=== PATIENT | female | born 1965 | race Caucasian/White ===

== ENCOUNTER 2018-02-10 21:35 | Inpatient (IN) ==
--- NOTE | 2018-02-11 03:04 | ED ---
HPI General Chief Complaint: Psychiatric Symptoms Stated Complaint: psych evail/DCSO Time Seen by Provider: 02/11/18 01:57 Source: patient Mode of arrival: EMS Limitations: no limitations History of Present Illness HPI Narrative: 52-year-old white female presents emergency department as a transfer from [facility] under Mend[place]ola act for psychological evaluation after a suicide attempt. Patient has major depressive disorder. She had been drinking alcohol and had overdosed on amlodipine. The patient states that she was feeling overwhelmed with being unemployed and moving her parents from [place] to [place]. She had posted on Facebook which alerted friends who had found her. She had written a suicide note as well. The patient has contemplated suicide in the past. She states that she has never acted on it as she had done this past week. During her hospitalization it was noted that she was having runs of [employer] fib. She was started on apixaban and amrinone. The patient currently denies any medical complaints. No chest pain, palpitations, nausea, vomiting, abdominal pain or urinary symptoms. Patient does admit to a history of alcohol abuse. She drinks wine on a daily basis. She denies tobacco and drugs. Past medical history: Atrial fibrillation, adenocarcinoma the colon with resection, hypertension, depression, right ectopic Surgical history: Laparoscopic hand-assisted partial colectomy, right salpingo- oophorectomy Related Data Home Medications Medication Instructions Recorded Confirmed amiodarone 200 mg PO DAILY 02/10/18 02/10/18 amlodipine 10 mg PO DAILY 02/10/18 02/10/18 apixaban 5 mg PO BID 02/10/18 02/10/18 fluoxetine 40 mg PO DAILY 02/10/18 02/10/18 multivitamin 1 tab PO DAILY 02/10/18 02/10/18 Allergies Allergy/AdvReac Type Severity Reaction Status Date / Time ibuprofen Allergy Intermediate Rash Verified 02/12/18 09:05 Review of Systems ROS: all other systems reviewed are negative [facility] Medical History Medical History Anxiety (Acute) Atrial fibrillation (Acute) Colon cancer (Acute) Depression (Acute) Ectopic (Acute) History of chemotherapy (Acute) Hypertension (Acute) Surgical History Surgical History History of colon resection (Acute) Hx of tubal ligation (Acute) Family History Family History Father HTN (hypertension) Mother HTN (hypertension) Breast cancer Social History Social History Substance History: No History of Abuse Second Hand Smoke Exposure: No Smoking Status: Former smoker Tobacco Type: Cigarettes How Often Do You Have a Drink Containing Alcohol: 4 or more times a week Hx Recent Travel: No Recent Travel in [facility] within the Last 8 Weeks: No Recent Out of Country Travel within the Last 8 Weeks: No Immunization History Tetanus Immunization: Unsure Hx Influenza Vaccine This Season: No Exam Narrative Exam Narrative: GENERAL: Well-nourished, well-developed patient. SKIN: Warm and dry. HEAD: Normocephalic and atraumatic. EYES: No scleral icterus. No injection or drainage. ENT: No nasal drainage noted. Mucous membranes pink. Airway patent. NECK: Supple, trachea midline. Moves head freely without obvious discomfort. CARDIOVASCULAR: Regular rate and rhythm without murmurs, gallops, or rubs. RESPIRATORY: Breath sounds equal bilaterally. No accessory muscle use. GASTROINTESTINAL: Abdomen soft, non-tender, nondistended. EXTREMITIES: No cyanosis or edema. BACK: Nontender without obvious deformity. No CVA tenderness. NEURO: Patient is alert and oriented. no sensorimotor deficits. Nonfocal. Normal speech. PSYCH: No delusions. No auditory or visual hallucinations. Course Initial Documented Vital Signs Temperature 98.1 F 02/11/18 00:21 Pulse Rate 75 02/11/18 00:21 Respiratory Rate 18 02/11/18 00:21 Blood Pressure 109/68 02/11/18 00:21 Pulse Oximetry 95 02/11/18 00:21 Last Documented Vital Signs Temperature 98.4 F 02/13/18 06:00 Pulse Rate 73 02/13/18 06:00 Respiratory Rate 17 02/13/18 06:00 Blood Pressure 119/70 02/13/18 06:00 Pulse Oximetry 97 02/13/18 06:00 Medical Decision Making MDM Narrative Medical decision making narrative: The patient has been medically cleared at [facility] after her intentional overdose/suicide attempt. I see no need for any additional testing at this time. The patient will be considered medically cleared to see the psychiatrist. Differential Diagnosis Differential Diagnosis: MDM: High Differential diagnoses: Schizophrenia, schizoaffective disorder, bipolar, anxiety, depression, adjustment reaction, mood disorder NOS, ODD, depressive disorder NOS, psychosis NOS, substance induced mood disorder, infection, electrolyte abnormality, malingering. Mental health screening discussed with the patient. Psychiatric screen ordered. Discharge Plan Discharge Disposition Patient Disposition: 01 Discharge Home Discharge Condition Condition: Stable Discharge Details Anticipated Discharge Date: 02/11/18 Physicians Team ED Provider: Paige Luis ED Midlevel Provider: Fidencio Levin Primary Care Provider: ROWENA, Attending Provider: Justice Corral Other Providers: Aram Arthur Status ED Status: Left Department Discharge Information Discharge Date/Time: 02/11/18 13:08
[2018-02-11] MEDS ORDERED: Aluminum/Magnesium/Simethacone Susp 30 ML UDC PO PRN (08:57)
[2018-02-11] MEDS ORDERED: Bisacodyl 10 MG Supp RECTAL PRN (08:57)
[2018-02-11] MEDS ORDERED: Haloperidol Inj 5 MG/ML Ampul IV.PUSH PRN (12:58)
[2018-02-11] MEDS ORDERED: LORazepam 1 MG Tablet PO PRN (12:58)
--- NOTE | 2018-02-11 13:08 | P.HPPSY ---
Provisional Diagnosis Admission Date: February 10, 2018 21:35 [place] I.: Major depressive disorder, recurrent, severe, without psychosis, alcohol use disorder, anxiety [place] II.: Deferred [place] III.: Hypertension Competence Certification of Person's Competence To Provide Express and Informed Consent I have personally examined Tracie Lambert, a person being served at [facility] on, February 11, 2018 1259. Express and informed consent means consent voluntarily given in writing, by a competent person, after sufficient explanation and disclosure of the subject matter involved to enable the person to make a knowing and willful decision without any element of force, fraud, deceit, duress, or other form of constraint or coercion. This person is 18 years of age or older, is not now known to be incompetent to consent to treatment with a guardian advocate, and does not have a health care surrogate or proxy currently making medical treatment decisions. I have found this person to be one of the following: [] Competent to provide express and informed consent, as defined above, for voluntary admission to this facility and is competent to provide express and informed consent for treatment. He/she has the consistent capacity to make well reasoned, willful, and knowing decisions concerning his or her medical or mental health treatment. The person fully and consistently understands the purpose of the admission for examination/placement and is fully capable of personally exercising all rights assured [place] Incompetent to provide express and informed consent to voluntary admission, and this is incompetent to provide express and informed consent to treatment. The person must be transferred to involuntary status and a petition for a guardian advocate filed with the Circuit Court. [x] Refusing to provide express and informed consent to voluntary admission but is competent to provide express and informed consent for treatment. The person must be discharged or transferred to involuntary status. Form shall be completed within 24 hours of a person's arrival at the receiving facility and filed in the clinical record of each person: 1. Admitted on a voluntary basis 2. Permitted to provide express and informed consent to his/her own treatment 3. Allowed to transfer from involuntary to voluntary status 4. Prior to permitting a person to consent to his or her own treatment after having been previously found incompetent to consent to treatment. History of Present Illness Capacity: Has capacity History of Present Illness: The patient is a 52-year-old woman, domiciled in the [facility], single, no kids, unemployed, with psychiatric history of anxiety, depression, alcohol use disorder, 1 previous psychiatric hospitalizations, one previous suicide attempt, she is on Prozac 20 mg prescribed by PCP, medical history hypertension, who presents emergency department as a transfer from [facility] under [place] act for psychological evaluation after a suicide attempt by overdosing with amlodipine. The patient states that she was feeling overwhelmed with being unemployed and moving her parents from [place] to [place]. She had posted on Facebook which alerted friends who had found her. She had written a suicide note as well. The patient has contemplated suicide in the past. She states that she has never acted on it as she had done this past week. She reports that the major stressors for her depression are her inability to control the alcoholism, no new business, sense of hopelessness, abandonment, financial stressors. Patient reports that she has many moment in a week in which she wishes to be . During the evaluation the patient is quite tearful, she seems very vulnerable, at the moment denies suicidal ideation , is able to contract for safety in the hospital. She is oriented 3, no attention deficit, no fluctuation of consciousness. PPHx: history of anxiety, depression, alcohol use disorder, 1 previous psychiatric hospitalizations, one previous suicide attempt, she is on Prozac 20 mg prescribed by PCP PMHx: JADEN sustance Hx: Patient drinks alcohol every day, denies illegal drug Family Hx: She denies family psychiatric history Social hx: The patient was born and raised in [place], she lives in [facility], she is single, no kids, unemployed, highest level of education is a bachelor degree Review of Systems Constitutional: Denies anorexia, Denies body ache(s), Denies chills, Denies daytime sleepiness, Denies excessive sweating, Denies fatigue, Denies fever(s), Denies headache(s), Denies increased appetite, Denies lack of energy, Denies malaise, Denies night sweats, Denies weakness, Denies weight gain, Denies weight loss, Denies other Eyes: Denies blind spots, Denies blurry vision, Denies bulging eyes, Denies change in vision, Denies double vision, Denies discharge, Denies dry eyes, Denies floaters, Denies irritation, Denies itchy eyes, Denies loss of vision, Denies pain, Denies requires corrective lenses, Denies sensitivity to light, Denies other Ears, Nose, Mouth, and Throat: Denies abnormal hearing, Denies bleeding gums, Denies bad breath, Denies change in voice, Denies dental pain, Denies difficulty swallowing, Denies dizziness, Denies dry mouth, Denies ear discharge , Denies ear pain, Denies facial pain, Denies headache(s), Denies hearing loss, Denies hoarseness, Denies lip swelling, Denies nosebleed, Denies mouth lesions, Denies mouth pain, Denies nasal congestion, Denies nasal discharge, Denies nasal obstruction, Denies nasal trauma, Denies neck lump, Denies neck pain, Denies nose pain, Denies pain with swallowing, Denies poor balance, Denies post nasal drip, Denies ringing in the ears, Denies sinus pain, Denies sinus pressure , Denies sore throat, Denies throat swelling, Denies tongue swelling, Denies other Cardiovascular: Denies chest pain, Denies chest pain at rest, Denies chest pain with activity, Denies excessive sweating, Denies fainting, Denies fast heart rate, Denies foot swelling, Denies generalized swelling, Denies irregular heart rhythm, Denies leg pain with activity, Denies leg sores, Denies leg swelling, Denies lightheadedness, Denies radiating jaw, neck or arm pain, Denies rapid, pounding, or irregular heartbeat, Denies shortness of breath, Denies shortness of breath with activity, Denies shortness of breath when lying down, Denies shortness of breath causing sudden awakening, Denies slow heart rate, Denies other Respiratory: Denies change in phlegm color, Denies chest congestion, Denies cough, Denies coughing up blood, Denies excessive phlegm production, Denies pain on inspiration, Denies pain with cough, Denies shortness of breath, Denies shortness of breath with activity, Denies snoring, Denies stridor, Denies wheezing, Denies other Gastrointestinal: Denies abdominal pain, Denies belching, Denies black, tarry stools, Denies bloating, Denies bright, red blood in stools, Denies change in bowel habits, Denies constant urge to pass stool, Denies change in stools, Denies coffee ground vomit, Denies constipation, Denies cramping, Denies difficulty swallowing, Denies excessive passing of gas, Denies feeling full early, Denies heartburn, Denies incontinent of stools, Denies loose stools, Denies nausea, Denies pain with swallowing, Denies vomiting, Denies vomiting blood, Denies other Musculoskeletal: Denies abnormal walking, Denies back pain, Denies body aches, Denies decreased muscle mass, Denies deformity, Denies joint pain, Denies joint swelling, Denies limited joint movement, Denies loss of height, Denies muscle cramps, Denies muscle weakness, Denies neck pain, Denies numbness, Denies radiating pain into limb, Denies stiffness, Denies tingling, Denies other Skin/Breast: Denies acne, Denies bleeding lesions, Denies boil, Denies breast swelling, Denies breast skin changes, Denies breast pain, Denies breast lump, Denies change in breast shape, Denies change in hair, Denies change in skin color, Denies changing lesions, Denies dry skin, Denies excessive hair growth, Denies hair loss, Denies itching, Denies lesions, Denies nail changes, Denies new lesions, Denies nipple discharge, Denies non-healing lesions, Denies redness , Denies sensitivity to light, Denies rash, Denies skin pain, Denies skin ulcer , Denies sores, Denies stretch lacey, Denies unusual bruising, Denies wounds, Denies yellowing of the skin, Denies other Neurologic: Denies abnormal hearing, Denies abnormal movements, Denies abnormal speech, Denies abnormal walking, Denies behavioral changes, Denies burning sensations, Denies confusion, Denies dizziness, Denies fainting, Denies frequent falls, Denies headache(s), Denies lack of coordination, Denies localized weakness, Denies loss of vision, Denies memory loss, Denies numbness, Denies other visual disturbances, Denies radiating pain, Denies restless legs, Denies convulsions, Denies seizure-like activity, Denies sensory deficit, Denies tingling, Denies tingling/numbness/burning sensations, Denies tremor(s), Denies unsteadiness, Denies weakness, Denies other Psychiatric: Reports change in appetite, Reports depression, Reports irritability, Reports mood swings, Reports thoughts of hurting/killing yourself [facility] - History History Provided By: Medical Record - Medical History Medical History: Medical History (Last Reviewed 02/11/18 @ 03:02 by JOHN Hansen) Depression Hypertension - Tobacco History Smoking Status: Never smoker - Alcohol History How Often Do You Have a Drink Containing Alcohol: 2 to 3 times a week - Substance Use History Substance History: No History of Abuse - Substance Use Type Alcohol Type: Daily Wine Route Used: By Mouth - Immunization History Tetanus Immunization: Unsure Hx Influenza Vaccine This Season: No Medications and Allergies Active Medications: Active Medications Al Hydrox/Mg Hydrox/Simethicone (Mag-Al Plus Susp Liq) 30 ml PO Q6H PRN PRN Reason: DYSPEPSIA Al Hydroxide/Mg Hydroxide (Milk Of Magnesia Liq) 30 ml PO Q12H PRN PRN Reason: Mild Constipation Bisacodyl (Dulcolax Supp) 10 mg RECTAL DAILY PRN PRN Reason: SEVERE CONSITIPATION Diphenhydramine HCl (Benadryl) 50 mg PO Q6H PRN PRN Reason: For mild anxiety and/or EPS Lactulose (Lactulose Liq) 30 ml PO DAILY PRN PRN Reason: SEVERE CONSITIPATION Lorazepam (Ativan Inj) 1 mg IM Q6H PRN PRN Reason: MODERATE TO SEVERE ANXIETY Senna/Docusate Sodium (Lydia-Colace) 1 tab PO BID BENEDICT Sennosides (Senokot) 17.2 mg PO Q12H PRN PRN Reason: Moderate Constipation Sertraline HCl (Zoloft) 25 mg PO DAILY BENEDICT Allergies Allergy/AdvReac Type Severity Reaction Status Date / Time ibuprofen Allergy Intermediate Rash Unverified 02/14/17 01:57 Home Medications Medication Instructions Recorded Confirmed Type amiodarone 200 mg PO DAILY 02/10/18 02/10/18 History amlodipine 10 mg PO DAILY 02/10/18 02/10/18 History apixaban 5 mg PO BID 02/10/18 02/10/18 History fluoxetine 40 mg PO DAILY 02/10/18 02/10/18 History multivitamin 1 tab PO DAILY 02/10/18 02/10/18 History Exam Vital signs: Vital Signs 02/11/18 00:21 Temperature 98.1 F Pulse Rate 75 Respiratory Rate 18 Blood Pressure 109/68 Pulse Oximetry 95 Intake & Output 02/10/18 02/11/18 02/11/18 18:59 06:59 18:59 Weight 81.647 kg 89.8 kg Other: Weight On Admission 89.8 kg Narrative: No tremors, no withdrawal, no EPS, no stiffness, no psychomotor agitation or retardation at the moment. - Constitutional no acute distress - Routine HEENT Exam Head: Present: normocephalic ENT: Present: mucous membranes moist Mental Status Examination Appearance: Appropriate Consciousness: Alert Orientation: x4 Motor Activity: Normal gait Speech: Unremarkable Language: Adequate Fund of Knowledge: Adequate Attention and Concentration: Adequate Memory: Unremarkable Mood: Sad Affect: Sad Thought Process & Associations: Intact Thought Content: Appropriate Hallucination Type: None Delusion Type: None Suicidal Ideation: Yes Suicidal Plan: No Suicidal Intention: No Homicidal Ideation: No Homicidal Plan: No Homicidal Intention: No Insight: Poor Judgment: Poor Assessment and Plan - Assessment (1) Major depress dis, severe Code(s): F32.2 - Major depressive disorder, single episode, severe without psychotic features Status: Acute - Plan Plan: Estimated LOS: [] days On psychiatric evaluation today the patient presents with symptoms of depression consistent on frequent crying spells, anhedonia, hopelessness, helplessness, increased loneliness, increased alcohol use with a recent quite a little suicidal attempt by overdosing with amlodipine after writing several suicidal notes. Patient reports as a stressor or alcohol use, separation from her parents, lack of social and family support. Lack of employment. This is a patient with a psychiatric history of anxiety, depression, alcohol use disorder , previous psychiatric admissions, previous suicide attempts in the past, who is now in an increased risk of danger to self and needs psychiatric admission for stabilization. She was on Prozac 40 mg daily prescribed by PCP. I will start on Zoloft 25 mg daily for depression. Continue CIWA. Will consult psychiatry for second opinion. Justification for Continued Inpatient Stay: Patient needs psychiatric admission for stabilization.
[2018-02-11] MEDS: Senna/Docusate Sodium 8.6/50 MG Tablet PO SCH (22:38)
[2018-02-12] MEDS: Senna/Docusate Sodium 8.6/50 MG Tablet PO SCH ×2 (09:06→22:33)
[2018-02-12] MEDS: Sertraline 50 MG Tablet PO SCH ×2 (09:06→11:52)
[2018-02-12] MEDS ORDERED: Acetaminophen 325 MG Tablet PO PRN (10:11)
[2018-02-12] MEDS ORDERED: Aluminum/Magnesium/Simethacone Susp 30 ML UDC PO PRN ×2 (10:11→10:16)
[2018-02-12] MEDS ORDERED: Bisacodyl 10 MG Supp RECTAL PRN (10:16)
--- NOTE | 2018-02-12 10:23 | P.PNPSY ---
Subjective Remarks: Patient is a 52-year-old white female initially admitted 2 0 under the Mend[place]ola act. His HNP reviewed and agreed with. Dr. Prado has done first opinion petition supporting Mendiola act. I have completed the initial psychiatric template admission orders. I agree with Dr. Prado patient does meet criteria for inpatient psychiatric hospitalization however I feel patient does have the capacity at this time to sign on a voluntary basis she is willing to do this thus I will lift the Mendiola act allow her to sign voluntary. Patient gives a history of episodic depression in the past related to care of her family. She was born in [place] she has lived in [place] her parents were living in [place] until she relocated them back to [facility] a few months ago returning to [facility] about 2 months ago to be near her boyfriend and her friends. Patient is single never been and has no children. Though she has a male friend who initially was romantically involved but now they are good friends E is the person who found this lady and took her to the hospital when she overdosed around 01/31. There is some confusion as to the process leading to patient being brought here from [facility]. In any event at this time patient does remain depressed though I feel she has improved sufficiently to sign voluntary she does deny suicidality at the present time. She is acknowledged alcoholic, over the past 2 months drinking a large bottle of wine daily, she denies blacking out or passing out, she has a history of detox/rehab a number of years ago. Though she denies any legal issues she denies any other drug use. At this time patient does meet criteria for further inpatient psychiatric assessment and treatment. Though I feel she does have capacity to sign voluntary thus I will lift the Mendiola act allow her to sign voluntary will continue her Zoloft at 25 mg daily at the present time. We will repeat her EKG to check her cardiac status. We will refer also to Shailesh Degroot traffic representative Review of Systems All other systems reviewed negative except as stated in HPI Mental Status Examination Appearance: Appropriate Consciousness: Alert Orientation: x4 Motor Activity: Normal gait Speech: Unremarkable Language: Adequate Fund of Knowledge: Adequate Attention and Concentration: Adequate Memory: Unremarkable Mood: Sad Affect: Other (Good range and intensity) Thought Process & Associations: Intact Thought Content: Appropriate Hallucination Type: None Delusion Type: None Suicidal Ideation: Yes (Denies at this time) Suicidal Plan: No Suicidal Intention: No Homicidal Ideation: No Homicidal Plan: No Homicidal Intention: No Insight: Fair Judgment: Adequate (Fair) Assessment and Plan - Assessment (1) Major depressive disorder, recurrent severe without psychotic features Code(s): F33.2 - Major depressive disorder, recurrent severe without psychotic features Status: Acute - Plan Plan: At this time patient does meet criteria for inpatient psychiatric hospitalization likely she does have capacity thus I will lift Mend[place] act allow her to sign voluntary. We will continue her on her Zoloft at 25 mg daily we will add Atarax and Benadryl for anxiety relief. At this time we will also continue the ciwa protocol and observe for any signs of withdrawal. Hopefully within the week she will be stabilized we can return her to her home to follow up with Shailesh porter Justification for Continued Inpatient Stay: At this time patient would decompensate a place to a lower level of care Discharge Planning: Return home Request Healthcare Surrogate/Guardian Advocate?: No
[2018-02-12] MEDS: Amiodarone 200 MG Tablet PO SCH (11:51)
[2018-02-12] MEDS: amLODIPine 10 MG Tablet PO SCH (11:52)
--- NOTE | 2018-02-12 17:31 | P.CON ---
History of Present Illness Service: [facility] Consult date: 02/12/18 Requesting Physician: Justice Corral Reason for Consult: Atrial Fibrilation Primary Care Provider: UNKNOWN Chief Complaint: Depression, HTN History of Present Illness: Patient is a 52-year-old female with primary medical history of HTN, atrial fibrillation, EtOH abuse, depression who initially came into the hospital for suicidal attempt. As per patient she took several amlodipine medication that she has and also with alcohol. Patient states that she has been an alcoholic but has been sober for quite some time and just restarted to drink again. States she is very depressed during the time of admission that she wanted to hurt herself. She denies dizzy ideation today. She also denies homicidal ideation. She states she is feeling a lot better now that she is in the psychiatry unit. States she was recently diagnosed with atrial fibrillation by her cash posting representative and was started on medications including Eliquis. Denies pain and discomfort. Denies SOB/ dyspnea. Denies chest pain, palpitations, headaches, dizziness. Denies fevers, chills, n/v/d. Denies hematuria, dysuria. Review of Systems All other systems reviewed negative except as stated in HPI PMFSH - History History Provided By: Patient - Medical History Medical History: Medical History (Last Updated 02/12/18 @ 18:23 by RAY Hdz) Anxiety Atrial fibrillation Colon cancer Depression Ectopic History of chemotherapy Hypertension - Surgical History Surgical History: Surgical History (Last Updated 02/11/18 @ 14:19 by Sapphire Murphy RN) History of colon resection Hx of tubal ligation - Family History Family History: Family History (Last Updated 02/13/18 @ 08:02 by RAY Hdz) Father HTN (hypertension) Mother HTN (hypertension) Breast cancer - Tobacco History Second Hand Smoke Exposure: No Tobacco Use In Past 30 Days: No Smoking Status: Former smoker Tobacco Type: Cigarettes - Alcohol History How Often Do You Have a Drink Containing Alcohol: 4 or more times a week - Substance Use History Substance History: No History of Abuse - Substance Use Type Alcohol Type: Daily Wine Status: Active Route Used: By Mouth Frequency: "One bottle of wine every day for the past month" Reason for Use: Calm Down - Travel History History of Recent Travel: No Recent Travel in the [facility] Within the Last 8 Weeks: No Recent Travel Out of the Country Within the Last 8 Weeks: No - Immunization History Tetanus Immunization: Unsure Hx Influenza Vaccine This Season: No Medications and Allergies Active Medications: Active Medications Acetaminophen (Tylenol) 650 mg PO Q4H PRN PRN Reason: Pain 1-5 or Temp >101F Amiodarone HCl (Cordarone) 200 mg PO DAILY [facility] Last Admin: 02/12/18 11:51 Dose: 200 mg Amlodipine Besylate (Norvasc) 10 mg PO DAILY [facility] Last Admin: 02/12/18 11:52 Dose: Not Given Apixaban (Eliquis) 5 mg PO BID [facility] Last Admin: 02/12/18 11:52 Dose: 5 mg Bisacodyl (Dulcolax Supp) 10 mg RECTAL DAILY PRN PRN Reason: SEVERE CONSITIPATION Diphenhydramine HCl (Benadryl) 50 mg PO Q6H PRN PRN Reason: For mild anxiety and/or EPS Flumazenil (Romazecon Inj) 0.2 mg IV.PUSH Q1M PRN PRN Reason: OVERSEDATION Haloperidol Lactate (Haldol Inj) 1 mg IV.PUSH Q15M PRN PRN Reason: for severe agitation Hydroxyzine HCl (Atarax) 50 mg PO Q6H PRN PRN Reason: ANXIETY Lactulose (Lactulose Liq) 30 ml PO DAILY PRN PRN Reason: SEVERE CONSITIPATION Lorazepam (Ativan Inj) 1 mg IM Q6H PRN PRN Reason: MODERATE TO SEVERE ANXIETY Lorazepam (Ativan) 1 mg PO Q4H PRN PRN Reason: for CIWA 8-10 Lorazepam (Ativan Inj) 2 mg IV.PUSH Q2H PRN PRN Reason: for CIWA 11-14 Lorazepam (Ativan Inj) 2 mg IV.PUSH Q1H PRN PRN Reason: for CIWA 15-20 Lorazepam (Ativan Inj) 2 mg IV.PUSH Q15M PRN PRN Reason: for CIWA > 20 Lorazepam (Ativan Inj) 1 mg IV.PUSH Q4H PRN PRN Reason: for CIWA 8-10 Lorazepam (Ativan) 2 mg PO Q2H PRN PRN Reason: for CIWA 11-14 Miscellaneous (Pill Splitter) 1 each OTHER [facility] Multivitamins (Theragran) 1 tab PO DAILY [facility] Last Admin: 02/12/18 11:52 Dose: 1 tab Senna/Docusate Sodium (Lydia-Colace) 1 tab PO BID [facility] Sennosides (Senokot) 17.2 mg PO Q12H PRN PRN Reason: Moderate Constipation Sertraline HCl (Zoloft) 25 mg PO DAILY [facility] Last Admin: 02/12/18 11:52 Dose: 25 mg Allergies Allergy/AdvReac Type Severity Reaction Status Date / Time ibuprofen Allergy Intermediate Rash Verified 02/12/18 09:05 Home Medications Medication Instructions Recorded Confirmed Type amiodarone 200 mg PO DAILY 02/10/18 02/10/18 History amlodipine 10 mg PO DAILY 02/10/18 02/10/18 History apixaban 5 mg PO BID 02/10/18 02/10/18 History fluoxetine 40 mg PO DAILY 02/10/18 02/10/18 History multivitamin 1 tab PO DAILY 02/10/18 02/10/18 History Physical Exam Vital signs: Vital Signs 02/12/18 07:02 Temperature 98.1 F Pulse Rate 71 Respiratory Rate 16 Blood Pressure 123/66 Pulse Oximetry 96 Intake & Output 02/11/18 02/12/18 02/12/18 18:59 06:59 18:59 Weight 89.8 kg Other: Date of Last Bowel Movement 02/09/18 02/11/18 Weight On Admission 89.8 kg Narrative: GENERAL: This is a well-nourished, well-developed patient, in no apparent distress. SKIN: Warm and dry. HEENT: Normocephalic. Pupils equal round and reactive. Nose without bleeding. Airway patent. NECK: Trachea midline. Supple. CARDIOVASCULAR: Regular rate and rhythm without murmurs, gallops, or rubs. RESPIRATORY: Clear to auscultation. Breath sounds equal bilaterally. No wheezes , rales, or rhonchi. GASTROINTESTINAL: Abdomen soft, non-tender, nondistended. Bowel Sounds normoactive x4. MUSCULOSKELETAL: Extremities without clubbing, cyanosis. Trace bilateral lower extremity edema NEUROLOGICAL: Awake and alert. Oriented to time, place, person. No focal neuro deficit. Moves all extremities. Normal speech. Assessment and Plan - Plan Patient is a 52-year-old female with primary medical history of HTN, atrial fibrillation, EtOH abuse, depression who initially came into the hospital for suicidal attempt Suicidal attempt, depression -Managed by psychiatry team EtOH abuse -Counseled -CIWA -Multivitamin, thiamine, famotidine Atrial fibrillation HTN -Continue home medication Eliquis, amlodipine, amiodarone 200 p.o. daily -On exam sinus rhythm -Monitor BP trend, monitor heart rate DVT prop Eliquis Code Status: Full code Discussed Condition With: Patient, nurse Discharge Planning: DC disposition by primary team
[2018-02-12] MEDS: Famotidine 20 MG Tablet PO SCH (20:06)
[2018-02-13] MEDS: Amiodarone 200 MG Tablet PO SCH (09:15)
[2018-02-13] MEDS: Famotidine 20 MG Tablet PO SCH ×2 (09:16→20:59)
[2018-02-13] MEDS: Senna/Docusate Sodium 8.6/50 MG Tablet PO SCH ×2 (09:16→20:59)
[2018-02-13] MEDS: amLODIPine 10 MG Tablet PO SCH ×2 (09:16→09:19)
[2018-02-13] MEDS: Sertraline 50 MG Tablet PO SCH (09:17)
--- NOTE | 2018-02-13 13:24 | ECG ---
Date Performed: 02/13/2018 Time Performed: 11:40:41 PTAGE: 52 years EKG: SINUS BRADYCARDIA LOW QRS VOLTAGE IN PRECORDIAL LEADS BORDERLINE ECG NO PREVIOUS TRACING DOCTOR: Aron Navarro Interpretating Date/Time 02/13/2018 13:22:27
--- NOTE | 2018-02-13 13:41 | P.PNPSY ---
Subjective Remarks: Patient seen and briceno with RNLydia, chart reviewed, patient compliant medication. Patient states she slept well last night for about 5-1/2-6 hours, feeling calmer that she is not homicidal or suicidal at the time. She is tolerating the medication without difficulty at this time. Hospitalist consultation noted and appreciated. EKG is been reviewed. For now continue treatment Review of Systems All other systems reviewed negative except as stated in HPI Mental Status Examination Appearance: Appropriate Consciousness: Alert Orientation: x4 Motor Activity: Normal gait Speech: Unremarkable Language: Adequate Fund of Knowledge: Adequate Attention and Concentration: Adequate Memory: Unremarkable Mood: Sad Affect: Other (Good range and intensity) Thought Process & Associations: Intact Thought Content: Appropriate Hallucination Type: None Delusion Type: None Suicidal Ideation: Yes (Denies at this time) Suicidal Plan: No Suicidal Intention: No Homicidal Ideation: No Homicidal Plan: No Homicidal Intention: No Insight: Fair Judgment: Adequate (Fair) Assessment and Plan - Assessment (1) Major depressive disorder, recurrent severe without psychotic features Code(s): F33.2 - Major depressive disorder, recurrent severe without psychotic features Status: Acute - Plan Plan: Patient continues depressed though improving she appears to be doing well with the milieu. She denies suicidality homicidality at this time. For now continue treatment Justification for Continued Inpatient Stay: At this time patient would decompensate a place to a lower level of care Discharge Planning: Probable return to her home Request Healthcare Surrogate/Guardian Advocate?: No
--- NOTE | 2018-02-13 14:26 | P.PN ---
Subjective Interval history: Follow-up visit A. fib, HTN. Patient seen and examined today. Reports she is doing well. States that atrial fibrillation is probably going to resolve according to his cloth burler if she quits drinking alcohol. Otherwise, denies pain and discomfort. Denies SOB/ dyspnea. Denies chest pain, palpitations, headaches, dizziness. Denies fevers, chills, n/v/d. Denies dysuria. Physical Exam Vital signs: Vital Signs 02/12/18 17:52 02/13/18 06:00 Temperature 97.7 F 98.4 F Pulse Rate 87 73 Respiratory Rate 16 17 Blood Pressure 128/76 119/70 Pulse Oximetry 96 97 Intake & Output 02/12/18 02/13/18 02/13/18 18:59 06:59 18:59 Other: Date of Last Bowel Movement 02/11/18 Narrative: GENERAL: This is a well-nourished, well-developed patient, in no apparent distress. SKIN: Warm and dry. HEENT: Normocephalic. Pupils equal round and reactive. Nose without bleeding. Airway patent. NECK: Trachea midline. Supple. CARDIOVASCULAR: Regular rate and rhythm without murmurs, gallops, or rubs. RESPIRATORY: Clear to auscultation. Breath sounds equal bilaterally. No wheezes , rales, or rhonchi. GASTROINTESTINAL: Abdomen soft, non-tender, nondistended. Bowel Sounds normoactive x4. MUSCULOSKELETAL: Extremities without clubbing, cyanosis. Trace bilateral lower extremity edema NEUROLOGICAL: Awake and alert. Oriented to time, place, person. No focal neuro deficit. Moves all extremities. Normal speech. Assessment and Plan - Plan Patient is a 52-year-old female with primary medical history of HTN, atrial fibrillation, EtOH abuse, depression who initially came into the hospital for suicidal attempt Suicidal attempt, depression -Managed by psychiatry team EtOH abuse -Counseled -CIWA -Multivitamin, thiamine, famotidine Atrial fibrillation HTN -Continue home medication Eliquis, amlodipine, amiodarone 200 p.o. daily -On exam sinus rhythm -Monitor BP trend, monitor heart rate DVT prop Eliquis Stable from Hospitalist standpoint. We will sign off. Reconsult as needed. Code Status: Full code Discussed Condition With: Patient, nursing Discharge Planning: DC disposition by primary team
[2018-02-13 17:48] VITALS: PULSE 68; RESP 18; O2SAT 98
[2018-02-14 05:12] VITALS: BP 110/61; TEMP 97.6
[2018-02-14] MEDS: Amiodarone 200 MG Tablet PO SCH (09:13)
[2018-02-14] MEDS: Famotidine 20 MG Tablet PO SCH (09:14)
[2018-02-14] MEDS: Sertraline 50 MG Tablet PO SCH (09:14)
[2018-02-14] MEDS: amLODIPine 10 MG Tablet PO SCH (09:15)
[2018-02-14] MEDS: Senna/Docusate Sodium 8.6/50 MG Tablet PO SCH (09:16)
--- NOTE | 2018-02-14 13:21 | P.DSPSY ---
Psychiatry Discharge Summary Inpatient Psychiatric care?: Yes Advance Directives: No Mental Health Advance Directive: No Health Care Proxy: No - Admission Admission Date: February 11, 2018 12:53 - Admission Diagnosis (1) Major depressive disorder, recurrent severe without psychotic features Code(s): F33.2 - Major depressive disorder, recurrent severe without psychotic features Brief History: The patient is a 52-year-old woman, domiciled in the [facility], single, no kids, unemployed, with psychiatric history of anxiety, depression, alcohol use disorder, 1 previous psychiatric hospitalizations, one previous suicide attempt, she is on Prozac 20 mg prescribed by PCP, medical history hypertension, who presents emergency department as a transfer from [facility] under [place] [facility] for psychological evaluation after a suicide attempt by overdosing with amlodipine. The patient states that she was feeling overwhelmed with being unemployed and moving her parents from [place] to [place]. She had posted on Facebook which alerted friends who had found her. She had written a suicide note as well. The patient has contemplated suicide in the past. She states that she has never acted on it as she had done this past week. She reports that the major stressors for her depression are her inability to control the alcoholism, no new business, sense of hopelessness, abandonment, financial stressors. Patient reports that she has many moment in a week in which she wishes to be . During the evaluation the patient is quite tearful, she seems very vulnerable, at the moment denies suicidal ideation , is able to contract for safety in the hospital. She is oriented 3, no attention deficit, no fluctuation of consciousness. PPHx: history of anxiety, depression, alcohol use disorder, 1 previous psychiatric hospitalizations, one previous suicide attempt, she is on Prozac 20 mg prescribed by PCP PMHx: JADEN sustance Hx: Patient drinks alcohol every day, denies illegal drug Family Hx: She denies family psychiatric history Social hx: The patient was born and raised in [place], she lives in [facility], she is single, no kids, unemployed, highest level of education is a bachelor degree Tobacco Use In Past 30 Days: No How Often Do You Have a Drink Containing Alcohol: 4 or more times a week Hospital Course: Patient's hospital course was uneventful, she showed compliance with medication from day of admission. Her depression with suicidal ideation in the vigilance slowly resolved with her compliance medication in a participation in the milieu patient seen today she denies suicidality homicidality voice or visions. States she is feeling much better she has energy and focus solutions to go back to her work. Thus patient will be discharged today with Rx 1 month follow-up [facility] outpatient medication management and counseling, also follow-up with [facility] outpatient support groups, and follow-up with AA - Discharge Discharge Date: 02/14/18 - Discharge Diagnosis (1) Major depressive disorder, recurrent severe without psychotic features Code(s): F33.2 - Major depressive disorder, recurrent severe without psychotic features Status: Acute Discharge Disposition: Home - Discharge Instructions Discharge Diet: Regular Diet Activities You Can Perform: Regular- No Restrictions - Discharge Time > 30 minutes Mental Status Examination Appearance: Appropriate Consciousness: Alert Orientation: x4 Motor Activity: Normal gait Speech: Unremarkable Language: Adequate Fund of Knowledge: Adequate Attention and Concentration: Adequate Memory: Unremarkable Mood: Sad Affect: Other (Good range and intensity) Thought Process & Associations: Intact Thought Content: Appropriate Hallucination Type: None Delusion Type: None Suicidal Ideation: Yes (Denies at this time) Suicidal Plan: No Suicidal Intention: No Homicidal Ideation: No Homicidal Plan: No Homicidal Intention: No Insight: Fair Judgment: Adequate (Fair) Discharge/Advance Care Plan - Results Vital Signs: Last Vital Signs Temp 97.6 F 02/14/18 05:35 Pulse 68 02/14/18 05:35 Resp 18 02/14/18 05:35 BP 110/61 02/14/18 05:35 Pulse Ox 98 02/14/18 05:35 Lab Results: Urine toxicology negative Summary of Procedures: None done Pending Results: None - Medications Number of antipsychotic medications at discharge: 0 - Discharge Care Plan Goals to Promote Your Health: * To prevent worsening of your condition and complications * To maintain your health at the optimal level Directions to Meet Your Goals: Take your medications as prescribed Follow your dietary instruction Follow activity as directed Keep your appointments as scheduled Take your immunizations and boosters as scheduled If your symptoms worsen call your PCP, if no PCP go to Urgent Care Center or Emergency Room For 22/01 questions related to your inpatient stay or results of tests pending at discharge, please contact Dr. Justice Corral MD at Smoking is Dangerous to Your Health. Avoid second hand smoking
== END 2018-02-14 16:30 | disposition home or self-care (01) ==
LOC: NEDAMB 21:35 → NEPJ 02-11 12:20 → H260 02-11 12:53
PROVIDERS: ADMIT Psychiatry & Neurology Psychiatry; ATTEND Psychiatry & Neurology Psychiatry